=== PATIENT | female | born 1980 | race Caucasian/White ===

== ENCOUNTER 2020-05-28 05:29 | Day surgery (SDC) | payer BC, OTHER ==
[2020-05-21 11:15] VITALS: BMI 39.8
[2020-05-24 14:06] LABS: Hemoglobin 13.7 g/dL (12.0-16.0); Mean Corpuscular HGB CONC 31.9 g/dL (32.0-36.0); Mean Corpuscular Hemoglobin 29.3 pg (27.0-31.0); Mean Corpuscular Volume 91.6 fL (78.0-98.0); Mean Platelet Volume 8.6 fL (7.4-10.4); Platelet Count 319 thou/uL (130-400); RBC Distribution Width 12.4 % (11.5-14.5); White Blood Cell (WBC) Count 9.2 thou/uL (4.8-10.8)
[2020-05-24 14:11] LABS: BHCG - Serum Negative (NEGATIVE); Pregs Control Background? CLEAR/WHITE (CLR/WHITE); Pregs Control Bar Appear? YES (CONTROL BAR)
[2020-05-25 16:01] LABS: SARS-CoV-2 MS2 Positive; SARS-CoV-2 N Gene Negative; SARS-CoV-2 S Gene Negative; SARS-CoV-2 orf1ab Negative
[2020-05-28] MEDS ORDERED: CeleCOXIB 100 MG CAP ONE (06:13)
[2020-05-28] MEDS ORDERED: Gabapentin 300 MG CAP ONE (06:13)
[2020-05-28] MEDS ORDERED: Famotidine/PF 20 mg/2ml Vial ONE (06:14)
[2020-05-28] MEDS ORDERED: Midazolam HCl 2 mg/2 ml Vial ONE (06:33)
[2020-05-28] MEDS ORDERED: Fentanyl 100 MCG/2 ML VIAL ONE ×2 (06:33→09:45)
[2020-05-28] MEDS ORDERED: Bupivacaine PF 0.5% 30 ML VIAL ONE (06:48)
[2020-05-28] MEDS ORDERED: Lidocaine 1% w/Epinephrine 1:100K 20 ML VIAL ONE (06:48)
[2020-05-28] MEDS ORDERED: Scopolamine 1.5 mg/72 hour Patch ONE (06:54)
[2020-05-28] MEDS ORDERED: Promethazine HCl 25 MG/ML VIAL SLOW IVP PRN (09:25)
[2020-05-28] MEDS ORDERED: Ondansetron HCl/PF 4 MG/2 ML Vial IVP PRN (09:25)
[2020-05-28] MEDS ORDERED: Promethazine HCl 25 MG/ML VIAL IM PRN (09:25)
[2020-05-28] MEDS ORDERED: Promethazine HCl 25 MG/ML VIAL ONE (11:25)
[2020-05-28] MEDS ORDERED: Sodium Chloride 0.9% 10 ML ONE (11:25)
[2020-05-28] MEDS ORDERED: Glycopyrrolate 0.2 MG/ML 5 ML SYRINGE ONE (11:36)
[2020-05-28] MEDS ORDERED: Dexamethasone 20 MG/5 ML VIAL ONE (11:36)
[2020-05-28] MEDS ORDERED: Ketorolac Tromethamine 30 MG/ML VIAL ONE (11:36)
[2020-05-28] MEDS ORDERED: PROPOFOL 200 MG/20 ML VIAL ONE (11:36)
[2020-05-28] MEDS ORDERED: Rocuronium Bromide 10 MG/ML (10ML VIAL) ONE (11:36)
[2020-05-28] MEDS ORDERED: Ondansetron PF 4 MG/2 ML Vial ONE (11:36)
[2020-05-28] MEDS ORDERED: Lidocaine 1% PF 5 ML VIAL ONE (11:36)
[2020-05-28] MEDS ORDERED: Estradiol 0.05mg/24 Hour Patch (Weekly) TD SCH (14:00)
--- NOTE | 2020-05-28 18:37 | OP ---
DATE OF PROCEDURE: 05/28/2020 PREOPERATIVE DIAGNOSES: 1. Menorrhagia. 2. Pelvic pain. POSTOPERATIVE DIAGNOSES: 1. Menorrhagia. 2. Pelvic pain. 3. Endometriosis. PROCEDURES PERFORMED: Robotic-assisted total laparoscopic hysterectomy, bilateral salpingo-oophorectomy. ANESTHESIA: General endotracheal. ENERGY ANALYST SURGEON: Mica Escobedo. ESTIMATED BLOOD LOSS: 100 mL. IVF: 800 mL of crystalloid. URINE OUTPUT: 670 mL clear urine. COMPLICATIONS: None. DRAINS: Norris catheter. PATHOLOGY: Uterus, cervix, bilateral fallopian tubes and ovaries. FINDINGS: A 10 cm uterus, normal appearing cervix. Ovaries were adherent to the cul-de-sac, and the rectum was adherent, obliterating the posterior cul-de-sac. There were endometriotic implants in the pelvis surrounding these adhesions. The fallopian tubes were normal bilaterally. The ureters were dissected out to avoid inadvertent injury and these were visible throughout the case. The bladder was also backfilled at the conclusion and no inadvertent bladder injury had occurred. There was excellent hemostasis on low pressure check. DESCRIPTION OF PROCEDURE: The patient was taken to the operating room, where general anesthesia was obtained without difficulty. The patient was prepped and draped in a sterile fashion in dorsal lithotomy position. A Norris catheter was placed in the bladder. A speculum was placed in the vagina. Anterior lip of the cervix was grasped with single-tooth tenaculum. The uterus was then sounded to 10 cm and the VADIM manipulator was assembled with a 10 cm tip and a 4 cm colpotomizer ring. The VADIM was then inserted into the uterus. The speculum and tenaculum were removed out of the vagina. Legs were placed in low lithotomy. Attention was turned to the abdomen. A mixture of 1% lidocaine with epinephrine and 0.5% Marcaine plain were infiltrated into the umbilicus. A 12-mm skin incision was made in the umbilicus and the Veress needle was passed into the abdomen noting an opening pressure of 3 mmHg. Pneumoperitoneum was obtained. The Veress needle was then removed. The 12 mm trocar and sleeve were advanced into the abdomen and confirmed placement with the robotic camera. Steep Trendelenburg was obtained. Right and left lower quadrant 8 mm robotic trocars were placed under direct visualization after infiltrating with anesthetic. The right upper quadrant 11 mm assistant spa director port was also placed under direct visualization after infiltrating with anesthetic. The robot was then docked. The right robotic arm contained monopolar scissors. Left robotic arm contained a fenestrated bipolar. The surgeon console then took control. The uterus was anteverted. The right fallopian tube was grasped and elevated. At that time, the dense adhesions posteriorly to the rectum, ovaries, and uterus and cervix were noted, and this anatomy was normalized mostly using a blunt dissection, pushing and spreading as well as peeling away the ovaries away from the adhesions and uterosacral ligaments. Once the ovaries had been freed and the degree of scarring and inflammation was noted, decision was made to proceed with bilateral oophorectomy. Therefore, the ureter was visualized medially at the pelvic brim. The IP ligament was clamped with the fenestrated hugging underneath the ovary on the right and cauterizing. This pedicle was incised with the scissors using cautery and the mesovarium was then sequentially cauterized with the fenestrated and incised with the scissors until the round ligament was met, that was cauterized in the midportion and incised. The posterior leaf of the broad ligament was then incised down to the level of the internal cervical os. Those adhesions of the rectum to the posterior vagina and cervix were also taken down at this time. There was some filminess to those adhesions and they did allow to bluntly push down and bring the rectum down below the level of the colpotomizer ring. The anterior leaf of the broad ligament was then incised with the scissors. The uterine vessels were skeletonized and the ureter was dissected out in the retroperitoneum laterally as it crossed underneath the uterine artery. The bladder flap was then created, incising on the vesicouterine peritoneum, ensuring a clear window and spreading the bladder tissue down distally below the level of the colpotomizer ring. Attention was then turned to the left side, where the left fallopian tube was grasped and elevated. That ovary had already been previously freed up, and the IP ligament was clamped across after noting the ureter running medially. This was cauterized multiple times and incised and sequentially clamped, cauterized, and incised down the mesovarium to the round ligament that was cauterized in the midportion and incised. The anterior leaf on the left was then incised down to the vesicouterine peritoneum and the posterior leaf was also incised down to the level of the uterosacral ligament. The vessels were skeletonized and the ureter was dissected out in the pelvic sidewall mainly using blunt dissection with the fenestrated pushing and spreading in the retroperitoneum, knowing where the ureter should be running as it crossed underneath the uterine vessel. At that time, the pubocervical fascia was scored on and blunt dissection of any adventitia down below the level of the colpotomizer ring was performed. The vessels were then cauterized bilaterally. Anterior colpotomy was performed. There was more oozing. At this portion of the case, there were accessory vessels that were identified and cauterized with the fenestrated and hemostasis was noted. With incision of the vessels, there were some bleeding with that and this was hemostatic after colpotomy was performed and allowing to directly clamp onto those vessels through and through with the fenestrated and cauterized. The posterior colpotomy was then completed and the uterus was completely transected and removed out of the abdomen into the vagina as a way to maintain pneumoperitoneum. The vaginal cuff was then copiously irrigated. The scissors were traded out for the needle trencher driver. The hemostasis was again achieved of the vaginal cuff of any oozing areas. The vaginal cuff was then closed with a 2-0 Stratafix barbed suture in a running fashion and ran back for a second layer. The needle was then cut and removed out of the abdomen. The vaginal cuff was irrigated copiously and suctioned. Low pressure check was performed at this time and noted excellent hemostasis. The bladder was also backfilled and no injury to the bladder had occurred, and FloSeal was then placed over the vaginal cuff to ensure hemostasis. All pedicles were noted to be hemostatic. All instruments were removed out of the abdomen. The robot was undocked and pneumoperitoneum was released. The fascia of the umbilical port was closed with 0 Vicryl in a [id number] fashion. The skin was closed with 4-0 Monocryl in subcuticular fashion. Dermabond was applied as well as a pressure dressing. The vaginal cuff was checked vaginally and noted to be hemostatic with excellent closure. All instruments removed out of the vagina. The patient tolerated the procedure well. Sponge, lap, and needle counts correct x2. The patient was taken to recovery room in stable condition. The patient received Ancef 2 g prior to the procedure. Job ID: [id number]
== END 2020-05-28 14:00 | disposition home or self-care (01) ==
LOC: SDC 05:29
PROVIDERS: ATTEND Student in an Organized Health Care Education/Training Program
PROC: 0UT24ZZ Resection of Bilateral Ovaries, Percutaneous Endoscopic Approach (ICD-10-PCS; principal; 2020-05-28)
PROC: 0UT74ZZ Resection of Bilateral Fallopian Tubes, Percutaneous Endoscopic Approach (ICD-10-PCS; principal; 2020-05-28)
PROC: 0UT94ZZ Resection of Uterus, Percutaneous Endoscopic Approach (ICD-10-PCS; principal; 2020-05-28)
DX: N80.0 Endometriosis of uterus (principal); N80.3 Endometriosis of pelvic peritoneum; N73.6 Female pelvic peritoneal adhesions (postinfective); N83.11 Corpus luteum cyst of right ovary; Z79.899 Other long term (current) drug therapy
CPT/HCPCS: 36415; 84703; 85027; 86850; 86900; 86901; 87635; 88307; J0690; J1100; J1885; J2001; J2250; J2405; J2550; J2704; J3010; S0020; S0028; U0003

== ENCOUNTER 2024-09-22 13:55 | Outpatient (CLI) | payer BC | END 2024-09-22 13:56 | disposition home or self-care (01) | LOC: BICMAMMO 13:55 | PROVIDERS: ATTEND Student in an Organized Health Care Education/Training Program | DX: N63.41 Unspecified lump in right breast, subareolar (principal) | CPT/HCPCS: G0279 ==